=== PATIENT | male | born 1945 | race American Indian/Alaskan Native ===

== ENCOUNTER 2016-06-12 11:55 | Day surgery (SDC) | payer MEDICARE ==
[2016-06-07 10:00] LABS: Hematocrit 48.9 % (35.5-45.6); Hemoglobin 16.5 gm/dl (11.8-15.2); Mean Corpuscular HGB Conc 34 % (32-34); Mean Corpuscular Hemoglobin 27 pg (28-32); Mean Corpuscular Volume 81 fl (84-94); Platelet Count 231 K/mm3 (140-440); Red Blood Count 6.03 M/mm3 (3.65-5.03); Red Cell Distribution Width 15.3 % (13.2-15.2); White Blood Count 5.6 K/mm3 (4.5-11.0)
[2016-06-07 10:22] LABS: Alanine Aminotransferase 27 units/L (7-56); Albumin 4.5 g/dL (3.9-5); Albumin/Globulin Ratio 1.3 %; Alkaline Phosphatase 123 units/L (35-129); Anion Gap 16 mmol/L; Bilirubin,Total 0.8 mg/dL (0.1-1.2); Blood Urea Nitrogen 10 mg/dL (9-20); Calcium 9.4 mg/dL (8.4-10.2); Carbon Dioxide 29 mmol/L (22-30); Chloride 100.2 mmol/L (98-107); Glucose 97 mg/dL (75-100); Potassium 4.3 mmol/L (3.6-5.0); Sodium 141 mmol/L (137-145)
--- NOTE | 2016-06-08 12:34 | Admit Criteria Form ---
Admission Criteria Documentation: AMBULATORY SURGERY EXCEPTION CRITERIA Ambulatory Surgery Exception Criteria ( Place 'X' for any and all applicable criteria): Surgery or procedure performed on ambulatory basis may require inpatient stay for[A] ANY ONE of the following(1)(2)(3)(4)(5)(6)(7)(8)(9): [X] I. A preoperative situation, condition, or finding that warrants inpatient stay as indicated by ANY ONE of the following: [] a) Inpatient care needed because of severity of a disease or condition rather than the surgery (eg, severe cardiac or respiratory disease, severe infection) (15) (16 ) (17) (18) [] b) Emergent procedure (eg, angioplasty for acute ischemia)(19) [X] c) Complex surgical approach or situation as indicated by ANY ONE of the following(3): X] i) Open approach needed instead of usual endoscopic, transcatheter, or other less invasive procedure [] ii) Difficult approach because of previous operation [] iii) Airway monitoring required after open neck procedures(20)(21) [] iv) Large mass requiring unusually extensive dissection [] v) Additional complicating feature requiring inpatient care (eg, drain management)(22(23): [] d) Major surgery in a pt with high anesthetic risk as indicated by ANY ONE of the following (2)(3)(5)(7)(8): [] i) ASA risk class III or higher (severe systemic disease impairing function) [D] [] ii) Advanced age (eg, older than 85 years)(14)(24) [] iii) Symptomatic heart failure(25) [] iv) Symptomatic asthma or COPD(8)(21) [] v) Morbid obesity with hemodynamic or respiratory problems(20)( 21)(26)(27) [] vi) Obstructive sleep apnea(20)(21) [] vii) Former premature infants who are younger than 60 weeks [] viii) High risk for severe postoperative abnormalities (eg, severe postoperative hypocalcemia after parathyroidectomy for severe hyperparathyroidism)(27)( 28) [] ix) Unstable angina(25) [] e) Drug-related risk requiring inpatient stay as indicated by ANY ONE of the following(5)(10)(14)(32)(33) [] i) Procedure requires discontinuing drugs or other therapy (eg , antiarrhythmic medication, antiseizure medication), which necessitates inpatient observation or treatment.(18)(31) [] ii) Major surgery and high risk drug use as indicated by ANY ONE of the following: [] 1) Active abuse of cocaine or similar drug [] 2) Monoamine oxidase inhibitor use [] 3) Other drug identified as posing risk [] f) Inadequate outpatient care situation as indicated by ANY ONE of the following(5)(10)(14)(32)(33) [] i) Patient lives remote from medical facility and procedure has urgent complication potential, and temporary nearby residence cannot be arranged [] ii) Patient will have postprocedure incapacitation and inadequate assistance at home, or alternative level of care cannot be arranged. [] iii) Patient will have long general anesthesia or procedure side effect resolution time, and competent person to stay with patient on first postoperative night at home or alternative level of care cannot be arranged. []iv) Other inadequate outpatient situation that cannot be handled by other means [] II. A perioperative event, condition, or finding that warrants inpatient stay as indicated by ANY ONE of the following (1)(2)(3): [] a) Inadequate physiologic recovery: cardiovascular, respiratory, or hemodynamic status not normal or near preoperative baseline(18) [] b) Hemodynamic instability [] c) Patient not alert with near normal or baseline mental status [] d) Temperature not normal or as expected and not appropriate for outpatient treatment of condition [] e) Ambulatory or appropriate activity level status not yet achieved post procedure [E](34)(35)(36) [] f) Operative site not appropriate (eg, unexpected or excessive drainage or bleeding) [] g) Postoperative effects not resolved or adequately managed (eg, significant pain or vomiting not appropriate for outpatient or next level of care)(10)(12) [] h) Complicating features requiring inpatient care as indicated by ANY ONE of the following(37): [] i) Severe complications of procedure (eg, bowel injury, airway compromise, vascular injury,severe hemorrhage) [] ii) Extensive (eg, dissection far beyond usual scope of procedure ) or prolonged (eg, 120 minutes beyond usual) surgery needed requiring inpatient postoperative care [] iii) Conversion to an open or complex procedure that requires inpatient care (eg, open vs laparoscopic cholecystectomy, abdominal vs vaginal hysterectomy)(38) [] iv) Comorbid condition or test result identified during or post procedure that requires inpatient care (7) [] v) Malignant hyperthermia(30) [] vi) Other complicating feature requiring inpatient care(22)(23) Inpatient stay may be needed until ALL of the following are present (1)(2)(3)(4) (5)(6)(10)(14)(33)(40): []a) Physiologic recovery: cardiovascular, respiratory, and hemodynamic status normal or near preoperative baseline []b) Hemodynamic stability []c) Patient alert, with near normal or baseline mental status []d) Temperature appropriate: patient afebrile or temperature appropriate for outpt treatment of condition []e) Activity level appropriate: ambulatory or appropriate activity level post procedure []f) Operative site appropriate as indicated by ALL of the following: []i) Site dry or with expected drainage []ii) Any blood noted is as expected for procedure. []g) Postoperative effects resolved or managed as indicated by ALL of the following: []i) Pain management appropriate for outpatient (or next level of) care(10) []ii) Minimal nausea and vomiting: if present, successfully treated with oral medication(12) []iii) Headache, dizziness, or drowsiness (if present) are mild. []h) Voiding status acceptable as indicated by ANY ONE of the following: []i) Voiding spontaneously []ii) No voiding but instructions given for follow-up in 6 to 8 hours []iii) Urinary catheter in place, and instructions given for follow-up []i) Complicating features requiring inpatient care manageable at a lower level of care(37) []j) Comorbid conditions manageable at a lower level of care(37) The original [employer] content created by [employer] has been revised. The portions of the content which have been revised are identified through the use of italic text or in bold, and [employer] has neither reviewed nor approved the modified material. All other unmodified content is copyright [employer]. Please see references footnoted in the original [employer] edition 2016
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
--- NOTE | 2016-06-12 13:24 | Anesthesia Day of Surgery ---
Anesthesia Day of Surgery - Day of Surgery Patient Examined: Yes Patient H&P Reviewed: Yes Patient is NPO: Yes
[2016-06-12] MEDS ORDERED: ANCEF/STERILE WATER 2 GM/20 ML IV NR (13:28)
[2016-06-12] MEDS ORDERED: SUBLIMAZE ONE (13:29)
[2016-06-12] MEDS ORDERED: DIPRIVAN 10 MG/ML IV ONE (13:29)
[2016-06-12] MEDS ORDERED: XYLOCAINE MPF 2% ONE ×2 (13:30)
[2016-06-12] MEDS ORDERED: VERSED IV NR (14:00)
[2016-06-12] MEDS ORDERED: PEPCID PO NR (14:00)
[2016-06-12] MEDS ORDERED: NACL 0.9% 1000 ML 1,000 ML IV SCH (14:00)
[2016-06-12] MEDS ORDERED: ZOFRAN ONE (14:41)
[2016-06-12] MEDS ORDERED: DECADRON ONE (14:41)
[2016-06-12] MEDS ORDERED: NEO SYNEPHRINE ONE (14:59)
[2016-06-12] MEDS ORDERED: NACL 0.9% 100 ML ONE (15:00)
[2016-06-12] MEDS ORDERED: NACL 0.9% IR ONE (15:05)
[2016-06-12] MEDS ORDERED: XYLOCAINE 1% 20 mL INFILTRATI ONE ×2 (15:06)
[2016-06-12] MEDS ORDERED: MARCAINE 0.5% INFILTRATI ONE ×2 (15:06)
[2016-06-12] MEDS ORDERED: NEOSTIGMINE ONE (15:15)
[2016-06-12] MEDS ORDERED: NACL 0.9% 1000 ML 1,000 ML ONE (15:35)
[2016-06-12] MEDS ORDERED: ROBINUL ONE ×2 (15:58)
--- NOTE | 2016-06-12 17:03 | Operative Report ---
PREOPERATIVE DIAGNOSIS: Bilateral large inguinal hernias. POSTOPERATIVE DIAGNOSIS: Bilateral large inguinal hernias. PROCEDURE: Open repair of bilateral inguinal hernias and application of Marlex mesh graft. ANESTHESIA: General. BLOOD LOSS: Minimal. FINDINGS: The patient had a huge hernia on the right side with a defect of 3 to 4 cm or the sac about 10 x 10 cm on the left side, it is of the direct type; one on right it was of the indirect type. FINDINGS: As above. DESCRIPTION OF PROCEDURE: With the patient in supine position, and draped in usual fashion. I made an incision in the right inguinal area to deep subcutaneous tissue all the way to the fascia, which was incised along its fibers making sure not to injure the ilioinguinal nerve. I was able to isolate the spermatic cords I could see the sac. This was safely and completely freed, suture ligated at its base and then the repair was performed using for that purpose 2-0 Ethibond interruptedly from _ of the inguinal ligament and Woody's ligament interruptedly and then I applied a graft with a keyhole tacking it to the fascia with the use of a continuous stitch of 2-0 Prolene all around, making sure to have a good opening for the spermatic cord. Everything went fine; then the fascia was closed with continuous stitch of 2-0 Vicryl and the same for subcutaneous tissue and the skin with camilo. After that maneuver, my attention was directed to the left side; in the same fashion I was able to do the same; however, the hernia was of the direct type. I was able to deliver it within the abdominal cavity and I did the repair in the same fashion. I then closed the skin with camilo. The patient was then transferred to the recovery room in good condition ascertaining a placement of both testicles in the scrotal area. I tried to locate the family, I could not find them. I left a message for them to call me. The patient was given prescription for Vicodin 10 one every 6 hours p.r.n. for pain. JOB# [id number] MARTHA/SHAN ELDRIDGE
[2016-06-12] MEDS: DILAUDID IV PRN ×2 (18:10→18:30)
--- NOTE | 2016-06-12 18:35 | Post Anesthesia Evaluation ---
- Post Anesthesia Evaluation Patient Participated: Yes Airway Patent: Yes Stable Respiratory Function: Yes Temp > 96.8F: Yes Pain Manageable: Yes Adequeate Hydration: Yes Anesthesia Complications: No Block Receding Appropriately: Not Applicable
[2016-06-12 23:53] VITALS: BP 125/77
== END 2016-06-12 23:00 | disposition home or self-care (01) ==
LOC: OR 11:55
PROVIDERS: ATTEND Surgery
DX: K40.20 Bilateral inguinal hernia, without obstruction or gangrene, not specified as recurrent (principal); F17.210 Nicotine dependence, cigarettes, uncomplicated; I10 Essential (primary) hypertension; D64.9 Anemia, unspecified
CPT/HCPCS: 36415; 49505; 80053; 85027; C1781; J0690; J1100; J1170; J2250; J2370; J2405; J2704; J2710; J3010; J7030; 88302; 88304